=== PATIENT | female | born 1980 | race Two or more races ===

== ENCOUNTER 2023-04-16 13:38 | Emergency (ER) | payer OTHER ==
[~2023-04-16] VITALS: Ht 160 cm; Wt 67.1 kg
== END 2023-04-16 19:12 | disposition home or self-care (01) ==
LOC: ER 13:38
DX: G43.909 Migraine, unspecified, not intractable, without status migrainosus (principal)
CPT/HCPCS: 70450; 70490; 96372; 99284; J1885